=== PATIENT | female | born 1975 | race Two or more races ===

== ENCOUNTER → 2021-02-08 | Outpatient (CLI) | payer OTHER ==
--- NOTE | 2021-02-08 18:17 | DEXAMM ---
INDICATION: M81.0 OSTEOPOROSIS. COMPARISON: None. TECHNIQUE: Bone density was measured using dual-energy x-ray absorptiometry (DEXA). FINDINGS: AP SPINE L1-L4 BMD 1.095 g/cm2 Young Adult T-Score -0.8 Age Matched Z-Score -0.6. LT FEMUR, TOTAL BMD 0.868 g/cm2 Young Adult T-Score -1.1 Age Matched Z-Score -0.7. LT NECK BMD 0.818 g/cm2 Young Adult T-Score -1.6 Age Matched Z-Score -0.9. RT FEMUR, TOTAL BMD 0.869 g/cm2 Young Adult T-Score -1.1 Age Matched Z-Score -0.7. RT NECK BMD 0.780 g/cm2 Young Adult T-Score -1.9 Age Matched Z-Score -1.2. IMPRESSION: There is normal bone density of the spine. There is low bone density of the left hip. There is low bone density of the right hip. FOLLOW-UP: Recommendation for the next bone density exam: 2 years. <Electronically signed by Matteo Cleaning > 02/08/21 [id number]
== END ==
LOC: M WHC 12:43
PROVIDERS: ATTEND Internal Medicine
DX: M81.0 Age-related osteoporosis without current pathological fracture (principal)

== ENCOUNTER → 2021-04-26 | Outpatient (CLI) | payer OTHER ==
[2021-04-26 17:04] LABS: BASO % 0.5 % (0.0-1.0); EOS # 0.2 10^3/uL (0.0-0.5); EOS % 3.1 % (0.0-3.0); HEMATOCRIT 40.2 % (36.0-47.0); HEMOGLOBIN 12.8 g/dl (12.0-15.5); LYMPH # 2.5 10^3/uL (1.5-5.0); LYMPH % 37.7 % (24.0-44.0); MEAN CORPUSCULAR HEMOGLOBIN 28.1 pg (27.0-33.0); MEAN CORPUSCULAR HGB CONC 31.8 g/dl (32.0-36.5); MEAN CORPUSCULAR VOLUME 88.4 fl (80.0-96.0); MONO # 0.5 10^3/uL (0.0-0.8); MONO % 7.2 % (2.0-8.0); NEUTROPHILS # 3.4 10^3/uL (1.5-8.5); NEUTROPHILS % 51.3 % (36.0-66.0); PLATELET COUNT, AUTOMATED 263 10^3/uL (150-450); RED BLOOD COUNT 4.55 10^6/uL (4.00-5.40); WHITE BLOOD COUNT 6.5 10^3/uL (4.0-10.0)
[2021-04-26 17:34] LABS: ERYTHROCYTE SEDIMENTATION RATE 29 mm/hr (0-20)
[2021-04-26 18:24] LABS: C REACTIVE PROTEIN QUANTITATIV 0.47 MG/DL (0.00-0.30)
== END ==
LOC: M LAB 15:53
PROVIDERS: ATTEND Allergy & Immunology Allergy
DX: T78.3XXA Angioneurotic edema, initial encounter (principal)

== ENCOUNTER → 2021-04-29 | Outpatient (CLI) | payer OTHER | LOC: M LAB 11:05 | PROVIDERS: ATTEND Allergy & Immunology Allergy | DX: M05.20 Rheumatoid vasculitis with rheumatoid arthritis of unspecified site (principal) ==

== ENCOUNTER → 2022-10-06 | Outpatient (REF) | payer OTHER | LOC: M SFHCRHEU 13:09 | PROVIDERS: ATTEND Internal Medicine | DX: M06.9 Rheumatoid arthritis, unspecified (principal) ==

== ENCOUNTER 2022-11-18 15:35 | Outpatient (CLI) | payer OTHER ==
[~2022-11-18] VITALS: Ht 157.5 cm; Wt 49.4 kg
[~2022-11-18 15:35] MED LIST: ALBUTEROL SULFATE 2.5MG/0.5ML INH NEB SOLN INH PRN; EPINEPHrine INJ 1 MG/ML 1ML AMP IM PRN; diphenhydrAMINE 50MG/ML VIAL IV PRN; methylPREDNISolone 125MG 2ML VIAL IV PRN
[2022-11-18 15:40] VITALS: BP_SYST 135; BP_SYST 136; BP_DIAS 75; BP_DIAS 78
[2022-11-18] MEDS ORDERED: diphenhydrAMINE 50MG CAP PO ONE (16:15)
[2022-11-18] MEDS ORDERED: ABATACEPT IV ONE ×2 (16:15)
[2022-11-18] MEDS ORDERED: ACETAMINOPHEN TAB 650MG DOSE (2X325MG) PO ONE (16:15)
[2022-11-18 17:30] VITALS: BP 121/61
[2022-11-18] MEDS ORDERED: HYDR1CAP25 PO (17:57)
[2022-11-18] MEDS ORDERED: VITA500045 PO (17:57)
[2022-11-18] MEDS ORDERED: LEVOTAB10 PO (17:57)
[2022-11-18] MEDS ORDERED: PLAQ200T4 PO (17:57)
[2022-11-18] MEDS ORDERED: FOLI1TAB11 PO (18:00)
[2022-11-18] MEDS ORDERED: OLOP2.5D3 OP (18:00)
[2022-11-18] MEDS ORDERED: PRED5PAK PO (18:00)
[2022-11-18] MEDS ORDERED: LEFL1TAB4 PO (18:01)
== END 2022-11-18 17:30 | disposition home or self-care (01) ==
LOC: M INFU 15:35
PROVIDERS: ATTEND Internal Medicine
DX: M06.9 Rheumatoid arthritis, unspecified (principal)
CPT/HCPCS: 96365; J0129

== ENCOUNTER 2022-12-02 15:50 | Outpatient (CLI) | payer OTHER ==
[~2022-12-02] VITALS: Ht 157.5 cm; Wt 49.0 kg
[~2022-12-02 15:50] MED LIST changes: +ABATACEPT IV ONE; +ACETAMINOPHEN TAB 650MG DOSE (2X325MG) PO ONE; +FOLI1TAB11 PO; +HYDR1CAP25 PO; +LEFL1TAB4 PO; +LEVOTAB10 PO; +NS 1,000 ML IV SCH; +OLOP2.5D3 OP; +PLAQ200T4 PO; +PRED5PAK PO; +VITA500045 PO; +diphenhydrAMINE 25MG CAP PO ONE
[2022-12-02 16:00] VITALS: BP 137/82
[2022-12-02 17:15] VITALS: BP 127/72
== END 2022-12-02 17:15 | disposition home or self-care (01) ==
LOC: M INFU 15:50
PROVIDERS: ATTEND Internal Medicine
DX: M06.9 Rheumatoid arthritis, unspecified (principal)
CPT/HCPCS: 96365; J0129

== ENCOUNTER 2022-12-16 15:45 | Outpatient (CLI) | payer OTHER ==
[~2022-12-16] VITALS: Ht 157.5 cm; Wt 49.4 kg
[2022-12-16 15:45] VITALS: BP 129/73
[~2022-12-16 15:45] MED LIST changes: -diphenhydrAMINE 25MG CAP PO ONE; +diphenhydrAMINE 50MG CAP PO ONE
[2022-12-16 16:57] VITALS: BP 125/74
== END 2022-12-16 17:00 | disposition home or self-care (01) ==
LOC: M INFU 15:45
PROVIDERS: ATTEND Internal Medicine
DX: M06.9 Rheumatoid arthritis, unspecified (principal)
CPT/HCPCS: 96365; J0129

== ENCOUNTER 2023-01-13 08:35 | Outpatient (CLI) | payer OTHER ==
[~2023-01-13] VITALS: Ht 157.5 cm; Wt 49.4 kg
[2023-01-13 08:45] VITALS: BP 141/85
[2023-01-13 09:47] VITALS: BP 136/84
== END 2023-01-13 09:50 | disposition home or self-care (01) ==
LOC: M INFU 08:35
PROVIDERS: ATTEND Internal Medicine
DX: M06.9 Rheumatoid arthritis, unspecified (principal)
CPT/HCPCS: 96365; J0129